=== PATIENT | male | born 1985 | race Caucasian/White ===

== ENCOUNTER 2022-08-26 20:15 | Emergency (ER) | payer OTHER, SELFPAY ==
[2022-08-26 20:16] VITALS: BP 170/103; PULSE 107; RESP 17; O2SAT 96; BMI 38.7
--- NOTE | 2022-08-26 20:22 | ED_ITS ---
HPI - General Adult General: Chief complaint: Airway/Esophagus Foreign Body Stated complaint: CHOKING Time Seen by Provider: 08/26/22 20:22 History of Present Illness: Mr. Trejo is a 37-year-old gentleman with a pertinent past medical history presents to the emergency department due to concern of food bolus. He reports eating steak at about 6 PM when he got a piece stuck in his throat while laughing and chewing. Since that time he has been unable to swallow anything including oral secretions. Now has some midsternal chest discomfort associated with it. Intensity symptoms is moderate. Course has persisted. No other specific changes in health, exacerbating, or alleviating factors identified. Onset (ago): hour(s) Location: chest Severity: moderate and severe Quality: stabbing and aching Pain Consistency: constant Exacerbating factors: eating Associated symptoms: Reports vomiting Review of Systems General: Reports: 10 or more systems reviewed and unremarkable except in HPI and below GI: Reports: vomiting PFS ED PFSH: Medical History (Updated 09/03/22 @ 00:00 by ) No significant past medical history Surgical History (Updated 08/26/22 @ 22:49 by King Nolan MD) No significant past surgical history Physical Exam Const: COMMON NORMALS: alert GENERAL APPEARANCE: cooperative, well developed and ill appearing (uncomfortable due to pain) HENMT: COMMON NORMALS: normocephalic and atraumatic HEAD & SCALP: normocephalic and atraumatic THROAT: posterior oropharynx normal Eye: COMMON NORMALS: conjunctivae normal CONJUNCTIVA: Yes conjunctivae normal SCLERA: sclerae normal Neck/C-Spine: COMMON NORMALS: supple GENERAL: Yes trachea midline Resp: COMMON NORMALS: normal respiratory effort EFFORT & INSPECTION: Yes able to speak in complete sentences Cardio: COMMON NORMALS: regular rate and regular rhythm RATE: regular rate RHYTHM: regular rhythm GI: COMMON NORMALS: Soft to palpation PALPATION: Yes Soft to palpation and No Tenderness to palpation present (GI) Extremity: GENERAL: Yes normal exam except as noted and No edema Neuro: COMMON NORMALS: moves all extremities SENSORIUM/ORIENTATION: Yes alert and No Orientation impaired Psych: COMMON NORMALS: mental status grossly normal and Normal thought process present THOUGHT PROCESS: Normal thought process present Course Vital Signs: Vital signs: Vital Signs Pulse Rate 115 H 08/26/22 23:20 Respiratory Rate 16 08/26/22 23:20 Blood Pressure 165/87 08/26/22 23:20 Pulse Oximetry 97 08/26/22 23:20 [facility] - General Adult Medical Decision Making 37-year-old gentleman presenting to the ER with chest pain and inability to tolerate any secretions or oral intake secondary to likely steak impacted food bolus. Uncomfortable appearing on exam however protecting airway, normal phonation, ABCs intact. Attempted Zofran, glucagon, and carbonated liquid without success. Patient subsequently has had a few episodes of hematemesis though remains vitally stable. Attempted chest x-ray with Gastrografin however patient was unable to tolerate significant amounts and esophagus is not well opacified. Therefore, CT was ordered with oral contrast, appears to be pooling most posteriorly as would be expected with gravity and no obvious evidence of perforation. Discussed with our general surgeon on-call who, given hematemesis, is uncomfortable performing endoscopy as the patient exceeds our capability to deal with complications if evidence of esophageal perforation is present on visual exam. Patient graciously accepted to [facility] ED as a direct transfer by Dr. Tubbs for gastroenterology intervention. Medical Records I reviewed the patient's medical records. Lab Data I reviewed the patient's lab results. : 08/26/22 21:19 08/26/22 21:[address] 08/26/22 20:49 IMPRESSION: 1. There is a retained solid soft tissue mass-like structure in the distal esophageal lumen, just proximal to the gastroesophageal junction. This measures 2.4 cm AP x 2.0 cm transverse x 4.4 cm craniocaudal. This is consistent with an impacted food bolus, in the proper clinical setting. 2. There is thickening of the distal wall of the esophagus. There is ingested enteric contrast material seen in the dependent portion of the distal esophagus. No extravasated contrast. No evidence of distal esophageal perforation. 3. There are densely calcified lymph nodes seen in the subcarinal and right hilar area consistent with old granulomatous disease. Particular note made of a 6 mm calcified lymph node adjacent to the anterior wall of the distal esophagus, series 4, image 27. This calcified node should not be confused with extravasated esophageal contrast material. 4. Decreased hepatic density is noted, consistent with hepatic steatosis. Chest X-Ray 08/26/22 20:53 IMPRESSION: 1. No acute findings. 2. No obvious Gastrografin over the esophagus, but possibly over the gastric fundus. Laboratory Results WBC 12.8 10^3/uL (4.0-10.0) H 08/26/22 21:19 RBC 5.48 10^6/uL (4.1-5.3) H 08/26/22 21:19 Hgb 15.9 g/dL (11.7-16.6) 08/26/22 21:19 Hct 49.0 % (42.0-52.0) 08/26/22 21:19 MCV 89.4 fl (80-94) 08/26/22 21:19 MCH 29.0 pg (28.0-34.0) 08/26/22 21:19 MCHC 32.4 g/dL (30.0-36.0) 08/26/22 21:19 RDW 13.2 % (12.1-15.1) 08/26/22 21:19 Plt Count 361 10^3/cmm (130-400) 08/26/22 21:19 MPV 10.1 fL (7.4-10.4) 08/26/22 21:19 Neut % (Auto) 56.7 % 08/26/22 21:19 Lymph % (Auto) 25.7 % 08/26/22 21:19 [place] % (Auto) 9.4 % 08/26/22 21:19 Eos % (Auto) 6.6 % 08/26/22 21:19 Baso % (Auto) 0.9 % 08/26/22 21:19 Neut # (Auto) 7.26 10^3/uL (1.8-7.7) 08/26/22 21:19 Lymph # (Auto) 3.3 10^3/uL (0.8-4.8) 08/26/22 21:19 [place] # (Auto) 1.2 10^3/uL (0.2-0.9) H 08/26/22 21:19 Eos # (Auto) 0.8 10^3/uL (0.0-0.8) 08/26/22 21:19 Baso # (Auto) 0.1 10^3/uL (0.0-0.1) 08/26/22 21:19 Nucleated RBC % (auto) 0 % 08/26/22 21:19 Nucleated RBCs # 0.0 /100WBC 08/26/22 21:19 PT 13.10 SECONDS (12.1-14.9) 08/26/22 21:19 INR 0.96 (0.8-1.2) 08/26/22 21:19 APTT 25.8 SECONDS (23.9-36.7) 08/26/22 21:19 Sodium 136 mmol/L (136-145) 08/26/22 21:19 Potassium 3.4 mmol/L (3.5-5.1) L 08/26/22 21:19 Chloride 100 mmol/L (98-107) 08/26/22 21:19 Carbon Dioxide 23 mmol/L (22-29) 08/26/22 21:19 Anion Gap 16.4 (5-19) 08/26/22 21:19 BUN 13 mg/dL (6-20) 08/26/22 21:19 Creatinine 0.9 mg/dL (0.7-1.2) 08/26/22 21:19 GFR Calculation 93.9 mL/min (90-130) 08/26/22 21:19 Glucose 153 mg/dL (65-115) H 08/26/22 21:19 Calculated Osmolality 285 mOsm/kg (285-295) 08/26/22 21:19 Calcium 9.6 mg/dL (8.5-10.5) 08/26/22 21:19 Discharge Plan Discharge Patient Disposition: Transfer to ED Clinical Impression: Esophageal obstruction due to food impaction, Hematemesis Condition: Stable Coding Level of Care Code ED [employer]est [employer] Member for [employer]g Fwd Exam Comprehensive
[2022-08-26] MEDS: ondansetron 2 mg/ML SDV 2 mL 4 MG IVP ×2 (20:32→21:43)
--- NOTE | 2022-08-26 20:49 | CTR_ITS ---
PROCEDURE INFORMATION: Exam: CT Chest With Contrast; Diagnostic Exam date and time: 08/26/2022 9:45 PM Age: 37 years old Clinical indication: Other: Food bolus, hematemesis; Additional info: Food bolus, cp, hematemesis TECHNIQUE: Imaging protocol: Diagnostic computed tomography of the chest with contrast. Radiation optimization: All CT scans at this facility use at least one of these dose optimization techniques: automated exposure control; mA and/or kV adjustment per patient size (includes targeted exams where dose is matched to clinical indication); or iterative reconstruction. Contrast material: OMNI 350; Contrast volume: 100 ml; Contrast route: INTRAVENOUS (IV); COMPARISON: CR (CHEST, ) 08/26/2022 9:04 PM RADIATION DOSE METRICS: Total DLP (mGy-cm): 664.91 FINDINGS: Lungs: Mild dependent atelectasis in the lower lobes. No consolidative pulmonary infiltrates are noted. Pleural spaces: No pleural effusion or pneumothorax noted. Heart: No cardiomegaly. No pericardial effusion. No coronary arterial calcifications demonstrated. Mediastinal space: There is thickening of the distal wall of the esophagus. There is ingested contrast material in the dependent portion of the distal esophagus. No extravasated contrast. No evidence of distal esophageal perforation. Lymph nodes: There are densely calcified lymph nodes seen in the subcarinal and right hilar area consistent with old granulomatous disease. Particular note made of a 6 mm calcified lymph node adjacent to the distal esophagus, series 4, image 27. Vasculature: The thoracic aorta appears unremarkable. No aneurysm or dissection demonstrated. Liver: Decreased hepatic density is noted, consistent with hepatic steatosis. Bones/joints: Mild degenerative spine changes. No fracture or other acute osseous abnormality. Soft tissues: There is a retained solid soft tissue mass-like structure in the distal esophageal lumen, just proximal to the gastroesophageal junction. This measures 2.4 cm AP x 2.0 cm transverse x 4.4 cm craniocaudal. This is consistent with an impacted food bolus, in the proper clinical setting. The soft tissues appear unremarkable. CT/CT chest w con* [id number] IMPRESSION: 1. There is a retained solid soft tissue mass-like structure in the distal esophageal lumen, just proximal to the gastroesophageal junction. This measures 2.4 cm AP x 2.0 cm transverse x 4.4 cm craniocaudal. This is consistent with an impacted food bolus, in the proper clinical setting. 2. There is thickening of the distal wall of the esophagus. There is ingested enteric contrast material seen in the dependent portion of the distal esophagus. No extravasated contrast. No evidence of distal esophageal perforation. 3. There are densely calcified lymph nodes seen in the subcarinal and right hilar area consistent with old granulomatous disease. Particular note made of a 6 mm calcified lymph node adjacent to the anterior wall of the distal esophagus, series 4, image 27. This calcified node should not be confused with extravasated esophageal contrast material. 4. Decreased hepatic density is noted, consistent with hepatic steatosis.
[2022-08-26 20:53] VITALS: RESP 25
[2022-08-26] MEDS: fentaNYL 50 mcg/mL INJ 2mL 100 MCG IVP (20:53)
--- NOTE | 2022-08-26 20:53 | XRR_ITS ---
PROCEDURE INFORMATION: Exam: XR Chest Exam date and time: 08/26/2022 9:04 PM Age: 37 years old Clinical indication: Other: Food bolus; Additional info: With gastrografin, eval hematemisis/food bolus TECHNIQUE: Imaging protocol: Radiologic exam of the chest. Views: 1 view. COMPARISON: No relevant prior studies available. FINDINGS: Lungs: Unremarkable. No consolidation. Pleural spaces: Unremarkable. No pleural effusion. No pneumothorax. Heart/Mediastinum: Unremarkable. No cardiomegaly. Bones/joints: Unremarkable. XR/XR chest 1V portable [id number] IMPRESSION: 1. No acute findings. 2. No obvious Gastrografin over the esophagus, but possibly over the gastric fundus.
[2022-08-26 21:29] VITALS: RESP 16
[2022-08-26] MEDS: HYDROmorphone 1 mg/mL INJ 1 mL IVP ×2 (21:29→22:56)
[2022-08-26] MEDS: iohexol 350 mg/mL 100 mL Btl IV (21:51)
[2022-08-26] MEDS: diatrizoate meglumine 30 mL Sol PO (21:59)
[2022-08-26 22:05] LABS: Basophils # 0.1 10^3/uL (0.0-0.1); Basophils % 0.9 %; Eosinophils # 0.8 10^3/uL (0.0-0.8); Eosinophils % 6.6 %; Hemoglobin 15.9 g/dL (11.7-16.6); Lymphocytes # 3.3 10^3/uL (0.8-4.8); Lymphocytes % 25.7 %; Mean Corpuscular HGB Conc 32.4 g/dL (30.0-36.0); Mean Corpuscular Volume 89.4 fl (80-94); Mean Platelet Volume 10.1 fL (7.4-10.4); Monocytes # 1.2 10^3/uL (0.2-0.9); Monocytes % 9.4 %; Neutrophils # 7.26 10^3/uL (1.8-7.7); Neutrophils % 56.7 %; Nucleated Red Blood Cells % 0 %; Platelet Count 361 10^3/cmm (130-400); Red Blood Count 5.48 10^6/uL (4.1-5.3); Red Cell Distribution Width 13.2 % (12.1-15.1); White Blood Count 12.8 10^3/uL (4.0-10.0)
[2022-08-26 22:16] LABS: INR 0.96 (0.8-1.2)
[2022-08-26 22:17] LABS: Partial Thromboplastin Time 25.8 SECONDS (23.9-36.7)
[2022-08-26 22:31] LABS: Anion Gap 16.4 (5-19); Blood Urea Nitrogen 13 mg/dL (6-20); Calcium 9.6 mg/dL (8.5-10.5); Carbon Dioxide 23 mmol/L (22-29); Chloride 100 mmol/L (98-107); Glomerular Filtration Rate 93.9 mL/min (90-130); Glucose 153 mg/dL (65-115); Osmolality Calculated 285 mOsm/kg (285-295); Potassium 3.4 mmol/L (3.5-5.1); Sodium 136 mmol/L (136-145)
[2022-08-26 22:56] VITALS: RESP 22; O2SAT 97
[2022-08-26] MEDS: haloperidol inj 5 mg/mL INJ 1 mL 2 MG IVP (23:07)
[2022-08-26] MEDS: sodium chloride 0.9% 1,000 ML 999 ML IV (23:08)
[2022-08-26 23:20] VITALS: BP 165/87; PULSE 115; RESP 16; O2SAT 97
--- NOTE | 2022-08-26 23:22 | PC.NURSE ---
pt arrives with food stuck in throat pt vomiting blood pt reports pain 10/10
== END 2022-08-26 23:23 ==
PROVIDERS: Emergency Provider Emergency Medicine
DX: T18.128A Food in esophagus causing other injury, initial encounter (principal); X58.XXXA Exposure to other specified factors, initial encounter; K92.0 Hematemesis
CPT/HCPCS: 36415; 71045; 71260; 80048; 85025; 85610; 85730; 96361; 96374; 96375; 96376; 99285; J1170; J1610; J1630; J2405; J3010; J7030; Q9963; Q9967

== ENCOUNTER 2023-03-21 09:16 | Emergency (ER) | payer OTHER, SELFPAY ==
--- NOTE | 2023-03-21 09:17 | W.ED.ABDPA2 ---
HPI - Abdominal Pain General: Chief Complaint: Urogenital-Male Stated Complaint: LLQ abd pain Time Seen by Provider: 03/21/23 09:17 History of Present Illness: Mr. Trejo is a 37-year-old gentleman without significant medical history presenting to the emergency department for abdominal pain. He notes gradual onset symptoms approximately 4 days ago without known provoking event. Since that time has had progressively worsening pain. Pain is constant and mild however now with movement and palpation become severe. Describes it as point stabbing pain. No radiation. No GI or urinary symptoms. Patient saw PCP and apparently had a normal urinalysis however we do not have this in our system and was referred to the ED for further evaluation. No other specific changes in health, exacerbating, or alleviating factors identified. Onset (ago): day(s) Pain Consistency: constant Location: LLQ Severity: severe Radiation: none Migration to: no migration Exacerbating factors: movement Relieving factors: rest Associated Symptoms: Reports no associated symptoms Review of Systems General: Reports: 10 or more systems reviewed and unremarkable except in HPI and below PFSH ED PFSH: Medical History No significant past medical history Surgical History No significant past surgical history Physical Exam Const: COMMON NORMALS: alert GENERAL APPEARANCE: cooperative and well developed HENMT: COMMON NORMALS: normocephalic and atraumatic HEAD & SCALP: normocephalic and atraumatic Eye: COMMON NORMALS: conjunctivae normal CONJUNCTIVA: Yes conjunctivae normal SCLERA: sclerae normal Neck/C-Spine: COMMON NORMALS: supple GENERAL: Yes trachea midline Resp: COMMON NORMALS: clear to auscultation bilaterally EFFORT & INSPECTION: Yes able to speak in complete sentences AUSCULTATION: clear to auscultation bilaterally Cardio: COMMON NORMALS: regular rate and regular rhythm RATE: regular rate RHYTHM: regular rhythm GI: COMMON NORMALS: Soft to palpation PALPATION: Yes Soft to palpation, Yes Tenderness to palpation present (GI) Details: LLQ, No Guarding due to palpation present (GI) and No Rigid due to palpation Extremity: GENERAL: Yes normal exam except as noted and No edema Neuro: COMMON NORMALS: moves all extremities SENSORIUM/ORIENTATION: Yes alert and No Orientation impaired Psych: COMMON NORMALS: mental status grossly normal and Normal thought process present THOUGHT PROCESS: Normal thought process present Course Vital Signs: Vital signs: Vital Signs Temperature 97.8 F 03/21/23 09:21 Pulse Rate 68 03/21/23 11:56 Respiratory Rate 16 03/21/23 11:56 Blood Pressure 121/82 03/21/23 09:21 Pulse Oximetry 97 03/21/23 11:56 Oxygen Delivery Me thod Room Air 03/21/23 09:57 MDM - Abdominal Pain Medical Decision Making 37-year-old gentleman presenting with abdominal symptoms. Abdominal tenderness palpation without evidence of acute surgical abdomen. He is nontoxic in appearance. Labs notable for mild leukocytosis, hemoconcentration, normal platelet count. Metabolic panel with minimal elevation in ALT of unclear significance. No UTI. Given exam, history, severity of symptoms CT imaging is appropriate. Patient has likely epiploic appendagitis. Incidental findings discussed with the patient. Patient improved with analgesia. Most likely etiology of symptoms is epiploic appendagitis. The results of ED evaluation were discussed with the patient including prescriptions and/or symptomatic cares (if applicable) including appropriate and responsible use, followup plan, and return precautions. The patient verbalized understanding and felt safe for discharge. Medical Records I reviewed the patient's medical records. Lab Data I reviewed the patient's lab results. 03/21/23 09:50 03/21/23 09:50 Labs/Radiology: Radiology Impressions Abdomen/Pelvis CT 03/21/23 10:08 IMPRESSION: 1. Inflammatory stranding sigmoid colon LEFT lower quadrant typical for epiploic appendagitis. 2. No drainable fluid collections. 3. No other acute findings. 4. Hepatomegaly diffuse fatty infiltration liver. Laboratory Results WBC 10.8 10^3/uL (4.0-10.0) H 03/21/23 09:50 RBC 5.31 10^6/uL (4.1-5.3) H 03/21/23 09:50 Hgb 15.3 g/dL (11.7-16.6) 03/21/23 09:50 Hct 46.6 % (42.0-52.0) 03/21/23 09:50 MCV 87.8 fl (80-94) 03/21/23 09:50 MCH 28.8 pg (28.0-34.0) 03/21/23 09:50 MCHC 32.8 g/dL (30.0-36.0) 03/21/23 09:50 RDW 13.5 % (12.1-15.1) 03/21/23 09:50 Plt Count 332 10^3/cmm (130-400) 03/21/23 09:50 MPV 9.5 fL (7.4-10.4) 03/21/23 09:50 Neut % (Auto) 55.0 % 03/21/23 09:50 Lymph % (Auto) 23.9 % 03/21/23 09:50 [place] % (Auto) 10.6 % 03/21/23 09:50 Eos % (Auto) 8.4 % 03/21/23 09:50 Baso % (Auto) 1.1 % 03/21/23 09:50 Neut # (Auto) 5.93 10^3/uL (1.8-7.7) 03/21/23 09:50 Lymph # (Auto) 2.6 10^3/uL (0.8-4.8) 03/21/23 09:50 [place] # (Auto) 1.1 10^3/uL (0.2-0.9) H 03/21/23 09:50 Eos # (Auto) 0.9 10^3/uL (0.0-0.8) H 03/21/23 09:50 Baso # (Auto) 0.1 10^3/uL (0.0-0.1) 03/21/23 09:50 Nucleated RBC % (auto) 0 % 03/21/23 09:50 Nucleated RBCs # 0.0 /100WBC 03/21/23 09:50 Sodium 137 mmol/L (136-145) 03/21/23 09:50 Potassium 4.1 mmol/L (3.5-5.1) 03/21/23 09:50 Chloride 103 mmol/L (98-107) 03/21/23 09:50 Carbon Dioxide 24 mmol/L (22-29) 03/21/23 09:50 Anion Gap 14.1 (5-19) 03/21/23 09:50 BUN 14 mg/dL (6-20) 03/21/23 09:50 Creatinine 0.7 mg/dL (0.7-1.2) 03/21/23 09:50 GFR Calculation 125.5 mL/min (90-130) 03/21/23 09:50 Glucose 94 mg/dL (65-115) 03/21/23 09:50 Calculated Osmolality 284 mOsm/kg (285-295) L 03/21/23 09:50 Calcium 9.3 mg/dL (8.5-10.5) 03/21/23 09:50 Total Bilirubin 0.4 mg/dL (0.15-1.2) 03/21/23 09:50 AST 23 U/L (0-40) 03/21/23 09:50 ALT 45 U/L (0-41) H 03/21/23 09:50 Alkaline Phosphatase 68 U/L (40-130) 03/21/23 09:50 Total Protein 7.4 g/dL (6.6-8.7) 03/21/23 09:50 Albumin 4.3 g/dL (3.5-5.2) 03/21/23 09:50 Globulin 3.1 g/dL (1.3-4.6) 03/21/23 09:50 Lipase 23 U/L (13-60) 03/21/23 09:50 Urine Color Yellow (Yellow) 03/21/23 09:50 Urine Appearance Clear (CLEAR) 03/21/23 09:50 Urine pH 6.5 (5-7) 03/21/23 09:50 Ur Specific [place] 1.020 (1.005-1.030) 03/21/23 09:50 Urine Protein Neg (Negative) 03/21/23 09:50 Urine Glucose (UA) Norm (Normal) 03/21/23 09:50 Urine Ketones Negative (Negative) 03/21/23 09:50 Urine Blood Neg (Negative) 03/21/23 09:50 Urine Nitrate Negative (Negative) 03/21/23 09:50 Urine Bilirubin Neg (Negative) 03/21/23 09:50 Urine Urobilinogen 1 mg/dL (Negative) H 03/21/23 09:50 Ur Leukocyte Esterase Negative (Negative) 03/21/23 09:50 Discharge Plan Discharge Patient Disposition: Home Clinical Impression: Abdominal pain, Epiploic appendagitis Condition: Stable Prescriptions: New oxycodone 5 mg tablet 5 mg PO Q4H PRN (Reason: pain) Qty: 10 0RF No Action losartan 25 mg tablet 25 mg PO BEDTIME atenolol 50 mg tablet 50 mg PO BEDTIME escitalopram oxalate 10 mg tablet 10 mg PO BEDTIME Discharge Orders: Discharge ED (Routine); Ordered 03/21/23 Ordered By: King Nolan Discharge Diet: Advance as tolerated and Clear Liquid Discharge Activity: Increase activity as tolerated Patient Instructions: Abdominal Pain (ED), Epiploic Appendagitis (ED), Opioid Safety Activity Restrictions/Additional Instructions: Thank you for visiting the emergency department. You were seen and evaluated for abdominal pain. The most likely cause of your symptoms is a condition called epiploic appendagitis which is typically self-limiting and does not require further management other than symptom treatment. You may use famr-jhs-cuxolts medications such as acetaminophen and ibuprofen for pain however please do not exceed the daily recommended dosage as listed on the packaging and please keep in mind that many namebrand medications contain the same active ingredients. Please avoid these medications if previously instructed to do so by another physician due to other underlying medical condition. I will prescribe oxycodone, use this cautiously as discussed. Please follow-up with a primary care provider. Return to the emergency department for uncontrolled symptoms or anything else that you are concerned about and feel needs emergency department evaluation. Coding Level of Care Code ED [employer] F[employer] for Cali Reyes
[2023-03-21 09:21] VITALS: BP 121/82; PULSE 78; RESP 14; TEMP 36.6; O2SAT 96; BMI 40.8
[2023-03-21] MEDS: morphine 4 mg/mL SDV 1 mL IVP (09:43)
[2023-03-21 09:48] VITALS: O2SAT 100
[2023-03-21 09:54] LABS: Add Urine Microscopic? NO; Charge for UA Resulting for Rev
[2023-03-21 09:56] LABS: Basophils # 0.1 10^3/uL (0.0-0.1); Basophils % 1.1 %; Eosinophils # 0.9 10^3/uL (0.0-0.8); Eosinophils % 8.4 %; Hematocrit 46.6 % (42.0-52.0); Hemoglobin 15.3 g/dL (11.7-16.6); Lymphocytes # 2.6 10^3/uL (0.8-4.8); Lymphocytes % 23.9 %; Mean Corpuscular HGB Conc 32.8 g/dL (30.0-36.0); Mean Corpuscular Hemoglobin 28.8 pg (28.0-34.0); Mean Corpuscular Volume 87.8 fl (80-94); Mean Platelet Volume 9.5 fL (7.4-10.4); Monocytes # 1.1 10^3/uL (0.2-0.9); Monocytes % 10.6 %; Neutrophils # 5.93 10^3/uL (1.8-7.7); Nucleated Red Blood Cells % 0 %; Platelet Count 332 10^3/cmm (130-400); Red Blood Count 5.31 10^6/uL (4.1-5.3); Red Cell Distribution Width 13.5 % (12.1-15.1); White Blood Count 10.8 10^3/uL (4.0-10.0)
[2023-03-21 09:57] VITALS: O2SAT 100
[2023-03-21 10:01] LABS: Bilirubin Urine Neg (Negative); Blood Urine Neg (Negative); Glucose Urine UA Norm (Normal); Ketones Urine Negative (Negative); Leukocyte Esterase Urine Negative (Negative); Nitrate Urine Negative (Negative); Protein Urine Neg (Negative); Urine Appearance Clear (CLEAR); Urine Color Yellow (Yellow); Urobilinogen Urine 1 mg/dL (Negative); pH Urine 6.5 (5-7)
--- NOTE | 2023-03-21 10:08 | CT_ITS ---
WS: [id number] CT ABDOMEN PELVIS TECHNIQUE: Contrast-enhanced CT of the abdomen and pelvis with coronal and sagittal reformatted image s. CLINICAL INFORMATION: LLQ pain COMPARISON: CT 2015 DLP: 1081.[address] scans at [facility] use at least one of these dose optimization techniques: automated e xposure control; mA and/or kV adjustment per patient size (includes targeted exams where dose is matc hed to clinical indication); or iterative reconstruction. FINDINGS: Mild inflammatory stranding in the LEFT lower quadrant sigmoid colon anteriorly suspicious for epiplo ic appendagitis. No drainable abscess or fluid collection. Only a few sigmoid diverticuli. Diffuse fatty infiltration liver. Hepatomegaly. Normal spleen. Chronic granulomas. Slight bibasilar a telectasis. Normal GE junction. Normal pancreatic parenchymal enhancement. Mild fatty atrophy of the pancreas. Normal portal vein and splenic vein. Adrenal glands are normal. Normal renal parenchymal en hancement. No hydronephrosis. Normal caliber abdominal aorta. Small fat-containing inguinal hernias. CT/CT abdomen pelvis w con* [id number] IMPRESSION: 1. Inflammatory stranding sigmoid colon LEFT lower quadrant typical for epiplo ic appendagitis. 2. No drainable fluid collections. 3. No other acute findings. 4. Hepatomegaly diffuse fatty infiltration liver.
[2023-03-21 10:15] LABS: Alanine Aminotransferase 45 U/L (0-41); Albumin Level 4.3 g/dL (3.5-5.2); Alkaline Phosphatase 68 U/L (40-130); Anion Gap 14.1 (5-19); Aspartate Amino Transferase 23 U/L (0-40); Blood Urea Nitrogen 14 mg/dL (6-20); Calcium 9.3 mg/dL (8.5-10.5); Carbon Dioxide 24 mmol/L (22-29); Chloride 103 mmol/L (98-107); Globulin 3.1 g/dL (1.3-4.6); Glomerular Filtration Rate 125.5 mL/min (90-130); Glucose 94 mg/dL (65-115); Lipase 23 U/L (13-60); Osmolality Calculated 284 mOsm/kg (285-295); Potassium 4.1 mmol/L (3.5-5.1); Sodium 137 mmol/L (136-145); Total Bilirubin 0.4 mg/dL (0.15-1.2); Total Protein 7.4 g/dL (6.6-8.7)
[2023-03-21] MEDS: iohexol 350 mg/mL 500 mL Btl (per mL) IV (10:17)
[2023-03-21 11:56] VITALS: PULSE 68; RESP 16; O2SAT 97
== END 2023-03-21 11:57 | disposition home or self-care (01) ==
PROVIDERS: Emergency Provider Emergency Medicine; PCP Nurse Practitioner
DX: K63.89 Other specified diseases of intestine (principal)
CPT/HCPCS: 74177; 80053; 81003; 83690; 85025; 96374; 99285; J2270; Q9967

== ENCOUNTER 2023-12-20 06:49 | Outpatient (CLI) | payer OTHER, SELFPAY ==
--- NOTE | 2023-12-20 07:21 | US_ITS ---
WS: [id number] RIGHT UPPER QUADRANT ULTRASOUND HISTORY: ELEVATED LIVER ENZYMES COMPARISON: 03/21/2023 Liver: 19.9 cm in length. Moderately enlarged liver. Very minimal coarse echotexture throughout the l iver. Portal Vein: Normal hepatopetal flow with monophasic waveform. Gallbladder: Normally distended gallbladder with no stones or wall thickening. CBD: 0.6 cm Pancreas: Normal size and echogenicity. Right kidney: 11.5 cm in length. Normal size and echogenicity. No hydronephrosis or mass. Aorta and IVC: Unremarkable abdominal aorta and IVC. No ascites. IMPRESSION: 1. Normal gallbladder. 2. Moderate hepatomegaly with mild hepatic steatosis. 3. No bile duct dilatation.
== END 2023-12-20 06:50 | disposition home or self-care (01) ==
LOC: RAD 06:50
PROVIDERS: PCP Nurse Practitioner; Visit Provider Nurse Practitioner
DX: R74.8 Abnormal levels of other serum enzymes (principal)
CPT/HCPCS: 76705

== ENCOUNTER 2024-01-23 15:00 | Outpatient (CLI) | payer OTHER, SELFPAY | END 2024-01-23 15:01 | disposition home or self-care (01) | LOC: SLEEP 01-24 12:48 | PROVIDERS: PCP Nurse Practitioner; Visit Provider Nurse Practitioner | DX: G47.33 Obstructive sleep apnea (adult) (pediatric) (principal) | CPT/HCPCS: G0399 ==